=== PATIENT | female | born 1955 | race Caucasian/White ===

== ENCOUNTER → 2018-01-09 | Outpatient (CLI) | payer OTHER ==
--- NOTE | ~2018-01-09 | 2DMMODE ---
[facility] [place] [address] 2 D/M-MODE ECHOCARDIOGRAM Name: BASIM JEAN Room #: REG [facility]#: [id number] Admission: 01/09/18 Attend Phys: Pino Marie DO Discharge: Date of : 59 Date of Service: 01/09/18 1324 Report #: [id number] THIS REPORT FOR: //name// APPROVED REPORT Study performed: 01/09/2018 10:34:35 EXAM: Comprehensive 2D, Doppler, and color-flow Echocardiogram Patient Location: Out-Patient Room #: Echo lab 2 Status: routine BSA: 1.91 HR: 82 bpm BP: 112/72 mmHg Other Information Study Quality: Adequate Indications Arrhythmia Diabetes CAD Hypertension/HDD S^P IA, History of apical thrombus. Echo Enhancing Agent Indication: Rule out thrombus Agent(s) / Amount(s) Used: , Optison 3 cc 2D Dimensions RVDd: 28.33 mm LVEF(%): 39.61 (>50%) IVSd: 8.76 (7-11mm) LVOT Diam: 18.55 (18-24mm) LVDd: 54.94 mm PWd: 10.29 (7-11mm) Ascending Ao: 29.37 (22-36mm) LVDs: 44.24 (25-40mm) Aortic Root: 30.04 mm IVC: 23.00 mm Marsh's LVEF: 39.61 % Volumes Left Atrial Volume (Systole) Single Plane 4CH: 50.50 mL Single Plane 2CH: 41.06 mL LA ESV Index: 26.00 mL/m2 Aortic Valve [facility] [place] [address] [place] [address] 2 D/M-MODE ECHOCARDIOGRAM Name: BASIM JEAN Room #: REG [facility]#: [id number] Admission: 01/09/18 Attend Phys: Pino Marie DO Discharge: Date of : 59 Date of Service: 01/09/18 1324 Report #: [id number] AoV Peak Abbe.: 1.36 m/s AO Peak Gr.: 7.43 mmHg LVOT Max P.19 mmHg LVOT Max V: 1.02 m/s SOFIA Vmax: 2.03 cm2 Mitral Valve E/A Ratio: 3.0 MV Decel. Time: 131.40 ms MV E Max Abbe.: 1.02 m/s MV A Abbe.: 0.34 m/s MV PHT: 38.10 ms IVRT: 50.75 ms Pulmonary Valve PV Peak Abbe.: 0.81 m/s PV Peak Gr.: 2.63 mmHg Pulmonary Vein P Vein S: 0.24 m/s P Vein A: 0.22 m/s P Vein D: 1.03 m/s P Vein A Dur.: 110.7 msec P Vein S/D Ratio: 0.23 Tricuspid Valve TR Peak Abbe.: 2.99 m/s TR Peak Gr.: 35.69 mmHg PA Pressure: 46.00 mmHg Left Ventricle Left ventricle is at the upper limits of normal. There is global hypokinesis of the left ventricle with severe hypokinesis in the apical wall. There is normal left ventricular wall thickness. Left ventricular ejection fraction is moderate to severely decreased. No left ventricular thrombus noted. LVEF is 30-35%. The left ventricular diastolic function is abnormal. Right Ventricle The right ventricle is normal size. The right ventricular systolic function is normal. Atria The left atrium size is normal. The right atrium size is normal. Aortic Valve The aortic valve is normal in structure. No aortic regurgitation is present. There is no aortic valvular stenosis. [address] [address] 2 D/M-MODE ECHOCARDIOGRAM Name: TEDBASIM Room #: REG [facility]#: [id number] Admission: 01/09/18 Attend Phys: Pino Marie DO Discharge: Date of : 59 Date of Service: 01/09/18 1324 Report #: [id number] Mitral Valve The mitral valve is normal in structure. Mild mitral regurgitation. No evidence of mitral valve stenosis. Tricuspid Valve The tricuspid valve is normal in structure. There is mild tricuspid regurgitation. The right atrial pressure is estimated at mmHg. There is moderate pulmonary hypertension. Pulmonic Valve The pulmonary valve is normal in structure. There is no pulmonic valvular regurgitation. Great Vessels The aortic root is normal in size. IVC is dilated and collapses >50% with inspiration. Pericardium There is no pericardial effusion. <Conclusion> Left ventricle is at the upper limits of normal. There is global hypokinesis of the left ventricle with severe hypokinesis in the apical wall. LVEF is 30-35%. No left ventricular thrombus noted. The aortic valve is normal in structure. The mitral valve is normal in structure. Mild mitral regurgitation. The tricuspid valve is normal in structure. There is mild tricuspid regurgitation. The right atrial pressure is estimated at mmHg. There is moderate pulmonary hypertension. The pulmonary valve is normal in structure. There is no pericardial effusion. <ELECTRONICALLY SIGNED> By: Joshua Virk MD 01/09/18 1324 1324 1324 Joshua Virk MD /INF
== END ==
LOC: CV 09:50
DX: I08.1 Rheumatic disorders of both mitral and tricuspid valves (principal); I25.10 Atherosclerotic heart disease of native coronary artery without angina pectoris; I49.9 Cardiac arrhythmia, unspecified; E11.9 Type 2 diabetes mellitus without complications; I10 Essential (primary) hypertension; Z95.5 Presence of coronary angioplasty implant and graft

== ENCOUNTER 2018-01-29 10:10 | Outpatient (CLI) | payer OTHER ==
[~2018-01-29] VITALS: Ht 162.6 cm; Wt 91.8 kg
--- NOTE | ~2018-01-29 | D ---
[facility] [place] [address] DISCHARGE SUMMARY Name: BASIM JEAN [id number] Admission: 01/29/18 Attend Phys: Jamel Cm MD Discharge: 01/30/18 Date of : 59 Report #: [id number] THIS REPORT FOR: //name// CC: Jamel Aguilardale JohnsonAlas DISCHARGE DIAGNOSES: 1. Ischemic cardiomyopathy. 2. Coronary artery disease. 3. Left ventricular thrombus. HISTORY: The patient with a history of recent VA with an ischemic cardiomyopathy, has been on optimal medical therapy and was here for an elective ICD implantation. She underwent successful implantation of a single-chamber [employer] ICD, which was without complications. HOSPITAL COURSE: She was monitored in the CCU overnight. The following day, she reports she was feeling well. She denied any chest pain or shortness of breath. PHYSICAL EXAMINATION: HEART: Regular rate and rhythm. LUNGS: Clear to auscultation bilaterally. ABDOMEN: Soft, nontender. EXTREMITIES: No edema. Her incision was healing nicely with no hematoma or bruising. On telemetry, she was in sinus rhythm. Her device interrogation showed normal device function. A PA and lateral chest x-ray was performed, showing stable lead position and no pneumothorax. As such, she was deemed stable for discharge home. She will continue her same home medications and she will resume her warfarin tomorrow. We will see her back in 7-10 days for site check. Discharge instructions were reviewed. <ELECTRONICALLY SIGNED> By: Jamel Cm MD 02/01/18 1623 [id number] [id number] Jamel Cm MD /nt
--- NOTE | ~2018-01-29 | P ---
[facility] [place] [address] PROCEDURE REPORT Name: BASIM JEAN [facility] [id number] Admission: 01/29/18 Attend Phys: Jamel Cm MD Discharge: 01/30/18 Date of : 59 Report #: [id number] THIS REPORT FOR: //name// CC: Danika Marie DATE OF SERVICE: 01/29/2018 PREOPERATIVE DIAGNOSES: 1. Ischemic cardiomyopathy. 2. Coronary artery disease. 3. Left ventricular thrombus. PROCEDURES PERFORMED: [employer] single chamber ICD implantation. HISTORY: The patient is a 62-year-old female with a history of coronary artery disease, status post ST segment elevation [place] and an ischemic cardiomyopathy of 30%-35% with a class 2-3 heart failure symptoms, who is here for ICD implantation for primary prevention of sudden cardiac . ANESTHESIA: The patient underwent MAC anesthesia with no anesthesia related complications. DESCRIPTION OF PROCEDURE: The patient underwent informed consent. We discussed the details of the procedure including the risks, which include but not limited to bleeding, infection, vascular damage, cardiac perforation and pneumothorax. She understood these risks and is willing to proceed. The patient was brought to the EP laboratory in a fasting and sedated state, prepped and draped in a sterile fashion. She received IV antibiotics. She underwent a venogram showing patency of the left axillary vein. Next, lidocaine was injected below the level of the left clavicle. Incision was made. A pocket was created over the prepectoral fascia and access was obtained once in the left axillary vein using the extrathoracic approach with the sheath positioned using the modified Seldinger technique. Next, a lead was positioned to the right ventricular apex with adequate pacing and sensing thresholds. The lead was sutured to the prepectoral fascia, connected to the device and then, the pocket was irrigated with vancomycin. The pocket was closed in 3 layers using 2-0 for the deep layer, 3-0 for the mid layer, 4-0 for the subcuticular layer. Surgical glue was applied to the outer skin layer. The implanted device was a [employer], model #[id number], with a serial #[id number]. The ICD lead was a [employer], model #7122Q, 58 cm, serial #[id number]. The lead demonstrated a R-wave of 9.7 millivolts, pacing impedance of 560 ohms and a pacing threshold of 0.5 volts at 0.5 milliseconds. The device was programmed to the VVI 40. The VT zone was set at 180-220 beats per minute with ATP while charging followed by max output shocks. The VF zone was set at greater than 220 beats per minute with [facility] [address] [place] [address] PROCEDURE REPORT Name: BASIM JEAN Room #: DEP [facility]#: [id number] Admission: 01/29/18 Attend Phys: Jamel Cm MD Discharge: 01/30/18 Date of : 59 Report #: [id number] ATP while charging followed by max output shocks. CONCLUSIONS: 1. Successful ICD implantation. 2. Satisfactory right ventricular pacing and sensing thresholds. By: 1300 1406 Jamel Cm MD /nt
[2018-01-29 10:48] LABS: ABSOLUTE NEUTROPHILS 2.3 thou/uL (1.4-8.2); BASOPHILS 1.1 % (0.0-2.0); EOSINOPHILS 2.9 % (0.0-3.0); HEMATOCRIT 38.8 % (37.0-47.0); HEMOGLOBIN 13.2 gm/dL (12.0-15.0); LYMPHOCYTES 30.4 % (24.0-44.0); MCV 88.3 fL (80.0-100.0); MONOCYTES 7.1 % (1.0-8.0); PLATELET COUNT 159 thou/uL (150-400); POLYS 58.5 % (36.0-66.0); RBC 4.39 mil/uL (4.20-5.00); RDW 14.8 % (10.5-14.5)
[2018-01-29 10:49] VITALS: BP 104/57
[2018-01-29] MEDS ORDERED: COREG6.25 MG PO (10:54)
[2018-01-29] MEDS ORDERED: PLAVIX 75 MG TA75 M1 PO (10:55)
[2018-01-29] MEDS ORDERED: ASPIR 8181 MG PO (10:55)
[2018-01-29] MEDS ORDERED: COUMADIN 5 MG TA5 M1 PO (10:56)
[2018-01-29] MEDS ORDERED: CYCLOBENZAPRINE5 MG PO (10:58)
[2018-01-29] MEDS ORDERED: CYMBALTA60 MG PO (10:59)
[2018-01-29] MEDS ORDERED: LASIX 40 MG TAB40 M2 PO (11:00)
[2018-01-29] MEDS ORDERED: K-DUR 20 MEQ T20 MEQ PO (11:01)
[2018-01-29] MEDS ORDERED: ZESTRIL2.5 MG PO (11:02)
[2018-01-29] MEDS ORDERED: METFORMIN HCL500 MG PO (11:03)
[2018-01-29] MEDS ORDERED: TRAMADOL 50 MG50 MG PO (11:04)
[2018-01-29] MEDS ORDERED: SPIRONOLACTONE25 M1 PO (11:04)
[2018-01-29 11:05] LABS: CREATININE 0.7 mg/dL (0.6-1.0); POTASSIUM 4.3 mmol/L (3.5-5.1)
[2018-01-29 11:06] LABS: APTT 27.8 Seconds (24.5-32.8); INR 1.2; PROTIME 12.2 Seconds (9.3-11.4)
[2018-01-29] MEDS ORDERED: LEVEMIR INJECTION (11:06)
[2018-01-29] MEDS ORDERED: HUMALOG100 UNIT/1 INJECTION (11:07)
[2018-01-29 20:07] VITALS: BP 135/64
[2018-01-30 00:38] VITALS: BP 138/56
[2018-01-30 04:14] VITALS: BP 145/61
[2018-01-30 07:06] VITALS: BP 112/64
[2018-01-30 10:14] VITALS: BP 112/64
== END 2018-01-30 10:30 | disposition home or self-care (01) ==
LOC: CATH 10:10 → 2N 17:42 → ENTRNSPT 01-30 10:21 → EDTRNSPTSTS 01-30 10:23 → CATH 01-30 10:30
PROVIDERS: Internal Medicine Cardiovascular Disease
DX: Z45.02 Encounter for adjustment and management of automatic implantable cardiac defibrillator (principal); I25.5 Ischemic cardiomyopathy; I25.10 Atherosclerotic heart disease of native coronary artery without angina pectoris; I25.2 Old myocardial infarction; E78.5 Hyperlipidemia, unspecified; E11.9 Type 2 diabetes mellitus without complications; E66.09 Other obesity due to excess calories; F32.9 Major depressive disorder, single episode, unspecified; Z98.890 Other specified postprocedural states; Z79.01 Long term (current) use of anticoagulants; Z85.3 Personal history of malignant neoplasm of breast; Z95.5 Presence of coronary angioplasty implant and graft; Z79.899 Other long term (current) drug therapy

== ENCOUNTER → 2018-10-01 | Outpatient (CLI) | payer OTHER ==
[~2018-10-01] MED LIST: ASPIR 8181 MG PO; COREG6.25 MG PO; COUMADIN 5 MG TA5 M1 PO; CYCLOBENZAPRINE5 MG PO; CYMBALTA60 MG PO; HUMALOG100 UNIT/1 INJECTION; K-DUR 20 MEQ T20 MEQ PO; LASIX 40 MG TAB40 M2 PO; LEVEMIR INJECTION; METFORMIN HCL500 MG PO; PLAVIX 75 MG TA75 M1 PO; SPIRONOLACTONE25 M1 PO; TRAMADOL 50 MG50 MG PO; ZESTRIL2.5 MG PO
--- NOTE | 2018-10-01 11:27 | 2DMMODE ---
[facility] [address] [place] [address] 2 D/M-MODE ECHOCARDIOGRAM Name: BASIM JEAN Room #: [facility]#: [id number] ������������� Admission: 10/01/18 ������������� Attend Phys: Jamel Cm Discharge: ��� ������������� ��� Date of : 59 Date of Service: 10/01/18 1126 �� Report #: [id number] �������� ��������������������������������������������[id number] THIS REPORT FOR: //name// APPROVED REPORT Study performed: 10/01/2018 10:18:21 EXAM: Comprehensive 2D, Doppler, and color-flow Echocardiogram Patient Location: Out-Patient Room #: Echo lab 2 Status: routine BSA: 2.00 HR: 69 bpm BP: 118/78 mmHg Rhythm: NSR Other Information Study Quality: Adequate Indications ICD: Cardiomyopathy 2D Dimensions RVDd: 30.73 mm IVSd: 11.45 (7-11mm) LVOT Diam: 20.08 (18-24mm) LVDd: 46.39 mm PWd: 10.48 (7-11mm) Ascending Ao: 30.33 (22-36mm) LVDs: 36.82 (25-40mm) Aortic Root: 28.70 mm IVC: 16.00 mm Volumes Left Atrial Volume (Systole) Single Plane 4CH: 37.25 mL Single Plane 2CH: 34.23 mL LA ESV Index: 21.00 mL/m2 Aortic Valve AoV Peak Abbe.: 1.18 m/s AO Peak Gr.: 5.61 mmHg LVOT Max P.81 mmHg LVOT Max V: 0.84 m/s SOFIA Vmax: 2.24 cm2 Mitral Valve E/A Ratio: 1.1 MV Decel. Time: 168.29 ms [facility] [address] [place] [address] 2 D/M-MODE ECHOCARDIOGRAM Name: BASIM JEAN Room #: [facility]#: [id number] ������������� Admission: 10/01/18 ������������� Attend Phys: Jamel Cm Discharge: ��� ������������� ��� Date of : 59 Date of Service: 10/01/18 1126 �� Report #: [id number] �������� ��������������������������������������������[id number] MV E Max Abbe.: 0.67 m/s MV A Abbe.: 0.61 m/s MV PHT: 48.80 ms IVRT: 115.34 ms Pulmonary Valve PV Peak Abbe.: 0.77 m/s PV Peak Gr.: 2.36 mmHg Pulmonary Vein P Vein S: 0.42 m/s P Vein A: 0.31 m/s P Vein D: 0.36 m/s P Vein A Dur.: 115.3 msec P Vein S/D Ratio: 1.17 Tricuspid Valve TR Peak Abbe.: 2.84 m/s TR Peak Gr.: 32.37 mmHg PA Pressure: 37.00 mmHg Left Ventricle The left ventricle is normal size. mild lateral hypokinesis There is normal left ventricular wall thickness. Left ventricular systolic function is mildly decreased. LVEF is 40-45%. The left ventricular diastolic function is abnormal. Right Ventricle The right ventricle is normal size. The right ventricular systolic function is normal. Device lead is present in the right ventricle. Atria The left atrium size is normal. The right atrium size is normal. Pacemaker lead is present in the right atrium. Aortic Valve The aortic valve is normal in structure. No aortic regurgitation is present. There is no aortic valvular stenosis. Mitral Valve The mitral valve is normal in structure. Mild mitral regurgitation. No evidence of mitral valve stenosis. Tricuspid Valve The tricuspid valve is normal in structure. There is mild tricuspid regurgitation. Estimated PAP 37 mmHg. There is mild pulmonary hypertension. Pulmonic Valve [address] [address] 2 D/M-MODE ECHOCARDIOGRAM Name: BASIM JEAN Ike Room #: REG Jose Alberto#: [id number] ������������� Admission: 10/01/18 ������������� Attend Phys: [facility]el [facility] Discharge: ��� ������������� ��� Date of : 59 Date of Service: 10/01/18 1126 �� Report #: [id number] �������� ��������������������������������������������[id number] The pulmonary valve is normal in structure. Trace pulmonic regurgitation. Great Vessels The aortic root is normal in size. IVC is normal in size and collapses >50% with inspiration. Pericardium There is no pericardial effusion. <Conclusion> The left ventricle is normal size. LVEF is 40-45%. mild lateral hypokinesis The right ventricular systolic function is normal. Device lead is present in the right ventricle. The left atrium size is normal. The right atrium size is normal. Pacemaker lead is present in the right atrium. The mitral valve is normal in structure. Mild mitral regurgitation. The tricuspid valve is normal in structure. There is mild tricuspid regurgitation. Estimated PAP 37 mmHg. There is mild pulmonary hypertension. The pulmonary valve is normal in structure. Trace pulmonic regurgitation. There is no pericardial effusion. ��������������������������������������������� <ELECTRONICALLY SIGNED> ���������������������������������������� By: Joshua Virk MD ��������������������������������������������� 10/01/18 1126 1126 1126 Joshua Virk MD /INF
== END ==
LOC: CV 09:50
DX: I08.1 Rheumatic disorders of both mitral and tricuspid valves (principal)

== ENCOUNTER → 2019-09-10 | Outpatient (CLI) | payer OTHER | LOC: RAD 14:15 | DX: Z12.31 Encounter for screening mammogram for malignant neoplasm of breast (principal) ==

== ENCOUNTER → 2020-01-29 | Outpatient (CLI) | payer OTHER ==
[2020-01-29 14:00] LABS: ANION GAP 9 mmol/L (7-16); BUN 19 mg/dL (7-18); CHLORIDE 103 mmol/L (98-107); CO2 28 mmol/L (21-32); GLUCOSE 88 mg/dL (74-106); SGOT 18 U/L (15-37); SGPT 24 U/L (30-65); SODIUM 140 mmol/L (136-145); TOTAL BILIRUBIN 0.7 mg/dL (0.2-1.0)
[2020-01-29 14:14] LABS: CALCIUM 9.3 mg/dL (8.5-10.1); CHOLESTEROL 119 mg/dL (<200); HDL CHOLESTEROL 36 mg/dL (>40); LDL CHOLESTEROL 60 mg/dL (<100); TC:HDL 3.3 Ratio (Not establshd); TRIGLYCERIDE 117 mg/dL (<150); VLDL 23 mg/dL (<40)
[2020-01-30 04:12] LABS: GLYCOHEMOGLOBIN (HGB A1C) 5.8 % (4.8-5.6)
== END ==
LOC: LAB 11:40
PROVIDERS: ATTEND Internal Medicine
DX: I10 Essential (primary) hypertension (principal); E11.9 Type 2 diabetes mellitus without complications; E78.2 Mixed hyperlipidemia

== ENCOUNTER → 2020-03-24 | Outpatient (CLI) | payer OTHER ==
[2020-03-24 09:36] LABS: CREATININE 0.8 mg/dL (0.6-1.0)
== END ==
LOC: MRI 08:25
PROVIDERS: ATTEND Family Medicine
DX: I67.82 Cerebral ischemia (principal); R41.3 Other amnesia; R42 Dizziness and giddiness

== ENCOUNTER → 2020-05-06 | Outpatient (CLI) | payer OTHER | LOC: SJCVCIMAG 12:44 | PROVIDERS: ATTEND Internal Medicine Cardiovascular Disease | DX: I08.1 Rheumatic disorders of both mitral and tricuspid valves (principal); I25.10 Atherosclerotic heart disease of native coronary artery without angina pectoris; I42.9 Cardiomyopathy, unspecified; I25.2 Old myocardial infarction; Z95.0 Presence of cardiac pacemaker ==

== ENCOUNTER → 2020-09-30 | Outpatient (CLI) | payer OTHER | LOC: LAB 07:42 | PROVIDERS: ATTEND Pediatrics | DX: Z01.812 Encounter for preprocedural laboratory examination (principal); Z20.822 Contact with and (suspected) exposure to COVID-19 ==

== ENCOUNTER → 2021-02-23 | Outpatient (CLI) | payer OTHER ==
[2021-02-23 09:40] LABS: ABSOLUTE NEUTROPHILS 3.4 thou/uL (1.4-8.2); BASOPHILS 0.8 % (0.0-2.0); EOSINOPHILS 2.7 % (0.0-3.0); HEMATOCRIT 43.9 % (37.0-47.0); HEMOGLOBIN 14.8 gm/dL (12.0-15.0); LYMPHOCYTES 22.4 % (24.0-44.0); MCH 31.2 pg (26.0-34.0); MCHC 33.6 g/dL (28.0-37.0); MCV 92.9 fL (80.0-100.0); MONOCYTES 7.4 % (1.0-8.0); PLATELET COUNT 147 thou/uL (150-400); POLYS 66.7 % (36.0-66.0); RBC 4.73 mil/uL (4.20-5.00); RDW 13.6 % (10.5-14.5)
[2021-02-23 09:58] LABS: CALCIUM 9.2 mg/dL (8.5-10.1); CREATININE 0.9 mg/dL (0.6-1.0); POTASSIUM 5.5 mmol/L (3.5-5.1); TOTAL BILIRUBIN 0.8 mg/dL (0.2-1.0); TOTAL PROTEIN 7.5 g/dL (6.4-8.2)
--- NOTE | 2021-02-24 07:11 | EKG ---
[address] [address] ELECTROCARDIOGRAM REPORT Name: BASIM JEAN Room #: [facility]#: [id number] Admission: 02/23/21 Attend Phys: Bin King MD Discharge: Date of : 59 Report #: [id number] [facility] Test Date: 2021-02-23 Test Time: 09:27:27 Pat Name: BASIM JEAN Department: Room: Gender: F Pesticide Use Medical Coordinator: : 1955 Requested By: Bin King Order Number: [id number] MD: Ariel Jauregui Measurements Intervals [place] Rate: 71 P: 49 [place]: 131 QRS: -20 QRSD: 99 T: 22 QT: 377 QTc: 410 Interpretive Statements Sinus rhythm Borderline left axis deviation Anterior infarct, old No previous ECG available for comparison Electronically Signed On 02-24-2021 7:11:10 CDT by Ariel Jauregui [email or web address] <ELECTRONICALLY SIGNED> By: Ariel Jauregui MD, [facility] 02/24/21 0711 0927 09 Ariel Jauregui MD, FACC /EPI
== END ==
LOC: LAB 08:58
PROVIDERS: ATTEND Otolaryngology Plastic Surgery within the Head & Neck
DX: G47.33 Obstructive sleep apnea (adult) (pediatric) (principal); G47.19 Other hypersomnia; K13.79 Other lesions of oral mucosa; J34.2 Deviated nasal septum; J34.3 Hypertrophy of nasal turbinates; E66.3 Overweight; Z90.89 Acquired absence of other organs; Z78.9 Other specified health status

== ENCOUNTER → 2021-03-02 | Day surgery (SDC) | payer OTHER ==
[~2021-03-02] VITALS: Ht 162.6 cm; Wt 79.4 kg
[~2021-03-02] MED LIST changes: +COZAAR 25 MG TA25 M1 PO; +ECOTRIN325 MG PO; +JARDIANCE10 MG PO; +LIPITOR 40 MG T40 M1 PO; +PROTONIX40 M2 PO; +TRULICITY0.75 MG/0. SUBQ; +VITAMIN D21250 MCG PO
[2021-03-02 09:32] VITALS: BP 143/73
[2021-03-02 11:54] VITALS: BP 143/73
--- NOTE | 2021-03-03 16:00 | O ---
[facility] [place] [address] OPERATIVE REPORT Name: BASIM JEAN Room #: REG [facility].#: [id number] Admission: 03/02/21 Attend Phys: Bin King MD Discharge: Date of : 59 Report #: [id number] THIS REPORT FOR: cc: Danika Alas MD,Danika King,Bin Maxwell MD ~ cc: Danika Alas MD, Kemal Quiroz MD DATE OF SERVICE: 03/02/2021 SURGEON: Bin King MD PREOPERATIVE DIAGNOSES: 1. Nasal septal deviation with obstruction. 2. Inferior turbinate hypertrophy. 3. Obstructive sleep apnea. POSTOPERATIVE DIAGNOSES: 1. Nasal septal deviation with obstruction. 2. Inferior turbinate hypertrophy. 3. Obstructive sleep apnea. PROCEDURES: 1. Nasal septoplasty. 2. Bilateral inferior turbinate submucous dissection. INDICATIONS: The patient is a 65-year-old female presenting with sleep disorder. The patient has mild obstructive apnea with an overall AHI of 16.4 and supine AHI of 16.7. The patient has been treated with CPAP, but has found it impossible to tolerate secondary to nasal obstructive symptoms. The patient presented with questions about Inspire device. At this time, she is not currently a candidate, but we did talk about nasal septoplasty and turbinectomy to allow her to tolerate her CPAP better. She has a BMI of 30.18. ANESTHESIA: General endotracheal. DESCRIPTION OF PROCEDURE: The patient was brought to the operating room and placed supine on the operating table. After adequate general anesthesia was achieved via endotracheal intubation, she was turned 90 degrees. The nasal septum, lateral wall nose and turbinates were injected with 1% Xylocaine with 1:100,000 epinephrine. 4% cocaine pledgets were placed. She was then prepped and draped in a sterile fashion. The procedure began with a left hemitransfixion incision. Mucoperichondrial flap was elevated. Cartilage was disarticulated posteriorly at the bony cartilaginous junction and a strip of cartilage was excised off the maxillary [address] [address] OPERATIVE REPORT Name: BASIM JEAN Room #: REG [facility].#: [id number] Admission: 03/02/21 Attend Phys: Bin King MD Discharge: Date of : 59 Report #: [id number] crest. A portion of perpendicular plate of the ethmoid and vomer were taken down as these were severely deviated to the left. This allowed the caudal cartilage to swing the midline, which relieved the obstruction. The hemitransfixion incision was then closed with interrupted 4-0 chromic and 4-0 chromic basting stitch was used to reapproximate mucoperichondrium. The inferior turbinates were then fractured medially. The anterior end was opened. A submucous dissection done on the bone. The edges reapproximated and the turbinate outfractured. This left the patient with a septum nicely midline with adequate airway bilaterally. No other obstruction was noted. She did have a septal spur on the left from the vomer cut superiorly and inferiorly and removed. The patient was then returned to anesthesia, awake without difficulty. No packing was needed. A 1 x 3 cottonoid soaked in Afrin were placed in the nose and transferred from the operating room to recovery room and then promptly removed in the recovery room. The patient will be watched awake and stable. Presuming she does well, discharge to home with plans to follow up with me in 2 weeks. Written and verbal discharge instructions and emergency precautions have been given to her . DISCHARGE MEDICATIONS: Will include amoxicillin 500 mg 1 t.i.d. for 10 days, hydrocodone/acetaminophen 7.5/325 1-2 q. 4-6 hours p.r.n., ondansetron 4 mg ODT tablets 1 p.o. q. 6 hours p.r.n. She was instructed on light activity and a soft diet. <ELECTRONICALLY SIGNED> By: Bin King MD 03/03/21 1600 1016 1028 Bin King MD /nt
== END | disposition home or self-care (01) ==
LOC: OR 08:29
PROVIDERS: ATTEND Otolaryngology Plastic Surgery within the Head & Neck
DX: J34.2 Deviated nasal septum (principal); J34.3 Hypertrophy of nasal turbinates; J34.89 Other specified disorders of nose and nasal sinuses; I10 Essential (primary) hypertension; E11.9 Type 2 diabetes mellitus without complications; E78.5 Hyperlipidemia, unspecified; I25.2 Old myocardial infarction; F32.9 Major depressive disorder, single episode, unspecified; G47.33 Obstructive sleep apnea (adult) (pediatric); Z98.890 Other specified postprocedural states; Z79.899 Other long term (current) drug therapy; Z87.891 Personal history of nicotine dependence; Z95.0 Presence of cardiac pacemaker; Z85.3 Personal history of malignant neoplasm of breast; Z90.49 Acquired absence of other specified parts of digestive tract
CPT/HCPCS: 50010; 50101; 50386; 50398; 50426; 56526; 56528; 62110; 62900; 70005

== ENCOUNTER → 2021-03-09 | Outpatient (CLI) | payer OTHER ==
[2021-03-09 12:26] LABS: BASOPHILS 0.5 % (0.0-2.0); EOSINOPHILS 5.5 % (0.0-3.0); HEMATOCRIT 39.1 % (37.0-47.0); HEMOGLOBIN 13.4 gm/dL (12.0-15.0); LYMPHOCYTES 28.5 % (24.0-44.0); MCH 31.6 pg (26.0-34.0); MCHC 34.3 g/dL (28.0-37.0); MONOCYTES 6.8 % (1.0-8.0); PLATELET COUNT 132 thou/uL (150-400); POLYS 58.7 % (36.0-66.0); RBC 4.25 mil/uL (4.20-5.00); RDW 13.6 % (10.5-14.5); WBC 5.1 thou/uL (4.0-11.0)
[2021-03-09 12:46] LABS: ALBUMIN 3.6 g/dL (3.4-5.0); ANION GAP 5 mmol/L (7-16); BUN 15 mg/dL (7-18); CALCIUM 8.9 mg/dL (8.5-10.1); CHLORIDE 104 mmol/L (98-107); CHOLESTEROL 132 mg/dL (<200); CO2 31 mmol/L (21-32); CREATININE 0.8 mg/dL (0.6-1.0); GLUCOSE 182 mg/dL (74-106); HDL CHOLESTEROL 50 mg/dL (>40); LDL CHOLESTEROL 58 mg/dL (<100); POTASSIUM 4.3 mmol/L (3.5-5.1); SGOT 14 U/L (15-37); SGPT 23 U/L (30-65); SODIUM 140 mmol/L (136-145); TC:HDL 2.6 Ratio (Not establshd); TOTAL BILIRUBIN 0.6 mg/dL (0.2-1.0); TRIGLYCERIDE 122 mg/dL (<150); VLDL 24 mg/dL (<40)
[2021-03-09 23:06] LABS: GLYCOHEMOGLOBIN (HGB A1C) 7.6 % (4.8-5.6)
== END ==
LOC: LAB 09:50
PROVIDERS: ATTEND Family Medicine
DX: E11.9 Type 2 diabetes mellitus without complications (principal); E78.2 Mixed hyperlipidemia; E55.9 Vitamin D deficiency, unspecified; Z79.4 Long term (current) use of insulin

== ENCOUNTER → 2021-05-11 | Outpatient (CLI) | payer OTHER ==
[2021-05-11 15:14] LABS: ABSOLUTE NEUTROPHILS 2.6 thou/uL (1.4-8.2); BASOPHILS 0.8 % (0.0-2.0); EOSINOPHILS 3.5 % (0.0-3.0); HEMATOCRIT 43.1 % (37.0-47.0); HEMOGLOBIN 14.3 gm/dL (12.0-15.0); LYMPHOCYTES 27.6 % (24.0-44.0); MCH 30.4 pg (26.0-34.0); MCHC 33.1 g/dL (28.0-37.0); MCV 91.9 fL (80.0-100.0); MONOCYTES 7.1 % (1.0-8.0); PLATELET COUNT 132 thou/uL (150-400); RBC 4.69 mil/uL (4.20-5.00); RDW 13.4 % (10.5-14.5); WBC 4.3 thou/uL (4.0-11.0)
[2021-05-11 15:34] LABS: ALBUMIN 4.1 g/dL (3.4-5.0); CALCIUM 9.2 mg/dL (8.5-10.1); TOTAL PROTEIN 7.7 g/dL (6.4-8.2)
== END ==
LOC: LAB 14:34
PROVIDERS: ATTEND Family Medicine
DX: B35.1 Tinea unguium (principal)

== ENCOUNTER → 2021-09-07 | Outpatient (CLI) | payer OTHER | LOC: RAD 11:42 | PROVIDERS: ATTEND Family Medicine | DX: M47.814 Spondylosis without myelopathy or radiculopathy, thoracic region (principal); M48.02 Spinal stenosis, cervical region; M50.223 Other cervical disc displacement at C6-C7 level; M51.34 Other intervertebral disc degeneration, thoracic region; M25.78 Osteophyte, vertebrae; Z87.39 Personal history of other diseases of the musculoskeletal system and connective tissue ==

== ENCOUNTER → 2021-09-21 | Outpatient (CLI) | payer OTHER ==
[~2021-09-21] VITALS: Ht 162.6 cm; Wt 79.8 kg
[2021-09-21 10:24] VITALS: BP 128/70
--- NOTE | 2021-09-21 10:35 | NUR ---
Pain Clinic Assessment: 1. History of Osteoarthritis: Not Applicable History of Rheumatoid Arthritis: Not Applicable 2. Height: 5 ft. 4 in. 162.6 cm. Weight: 176.0 lb. oz. 79.833 kg. Patient's BMI: 30.2 3. Vital Signs: BP: 128/70 Pulse: 84 Resp: 16 Temp: 02 Sat: 97 ECG Mon: 4. Pain Intensity: 7 5. Fall Risk: Dizziness: Y Needs help standing or walking: N Fallen in the last 3 months: N Fall risk comments: 6. Patient on Blood Thinner: None 7. History of Hypertension: Y 8. Opioid Therapy greater than 6 weeks: N Opiate Contract Signed: 9. Risk Assessment Tool Provided: low-2 10. Functional Assessment Tool: 11. Recreational Drug Use: Never Drug Type: Tobacco Use: Former Smoker Tobacco Type: Amount or Packs/day: How Many Years: Alcohol Use: No Frequency: Quant:
== END ==
LOC: PAIN 08:59
PROVIDERS: ATTEND Anesthesiology Pain Medicine
DX: M25.511 Pain in right shoulder (principal); M79.641 Pain in right hand; M79.601 Pain in right arm; R20.2 Paresthesia of skin; H40.219 Acute angle-closure glaucoma, unspecified eye